=== PATIENT | male | born 1965 ===

== ENCOUNTER 2025-06-17 09:07 | Emergency (ER) | payer SELFPAY ==
[~2025-06-17] VITALS: Ht 172.7 cm; Wt 55.0 kg
[2025-06-17 09:20] VITALS: BP 129/63; TEMP 96; O2SAT 94
== END 2025-06-17 10:27 | disposition left against medical advice (07) ==
LOC: EDBD 09:07 → M ED 09:07
DX: Z53.21 Procedure and treatment not carried out due to patient leaving prior to being seen by health care provider (principal)